=== PATIENT | male | born 1995 | race African-American/Black ===

== ENCOUNTER 2016-05-12 20:31 | Emergency (ER) | payer MEDICAID ==
[~2016-05-12] VITALS: Ht 177.8 cm; Wt 70.3 kg
[2016-05-12 20:40] VITALS: BP 122/67
== END 2016-05-12 23:00 | disposition home or self-care (01) ==
LOC: ER 20:35
DX: S66.113A Strain of flexor muscle, fascia and tendon of left middle finger at wrist and hand level, initial encounter (principal); S66.012A Strain of long flexor muscle, fascia and tendon of left thumb at wrist and hand level, initial encounter; W23.0XXA Caught, crushed, jammed, or pinched between moving objects, initial encounter; Y93.89 Activity, other specified; Y92.89 Other specified places as the place of occurrence of the external cause; Y99.8 Other external cause status
CPT/HCPCS: 73140-TC; A4606; Z7610

== ENCOUNTER 2022-07-22 01:38 | Emergency (ER) | payer MEDICAID, OTHER ==
[~2022-07-22] VITALS: Ht 177.8 cm; Wt 78.5 kg
--- NOTE | 2022-07-22 01:55 | NUR ---
BIBSELF WITH CC OF PAIN ON LEFT SHOULDER AFTER LIFTING HEAVY OBJECT FROM THE GYM. PT IS AMBULATORY. ABLE TO MAKE NEEDS KNOWN. PLACED COMFORTABLY IN BED.
--- NOTE | 2022-07-22 01:56 | NUR ---
[employer] PROFESSIONAL AT BEDSIDE
[2022-07-22] MEDS ORDERED: CYCL5TAB PO (03:09)
[2022-07-22] MEDS ORDERED: NAPR-1009 PO (03:09)
[2022-07-22 03:20] VITALS: BP 121/74
--- NOTE | 2022-07-22 03:21 | NUR ---
Patient discharged to home in stable condition. Written and verbal after care instructions given. Patient verbalizes understanding of instruction.
== END 2022-07-22 03:21 | disposition home or self-care (01) ==
LOC: ER 01:43
DX: S49.82XA Other specified injuries of left shoulder and upper arm, initial encounter (principal); Z60.2 Problems related to living alone; Z79.899 Other long term (current) drug therapy; X50.0XXA Overexertion from strenuous movement or load, initial encounter; Y93.43 Activity, gymnastics; Y92.89 Other specified places as the place of occurrence of the external cause; Y99.8 Other external cause status
CPT/HCPCS: 73030-TC